=== PATIENT | female | born 1970 | race Caucasian/White ===

== ENCOUNTER 2020-09-21 17:38 | Emergency (ER) | payer OTHER ==
[~2020-09-21] VITALS: Ht 170.2 cm; Wt 81.7 kg
--- NOTE | 2020-09-21 17:48 | NUR ---
CODE 250 CALLED WHILE PT IN CAR IN ED [address]. PT ASSISTED TO WC THEN TO REGISTRATION. ACCOMPANIED BY FEMALE FRIEND, OSMANY ABELARDO ( [birth year]), CELL [phone]
--- NOTE | 2020-09-21 18:34 | NUR ---
PT STATES SHE WAS TREATED AT [place] FOR COVID TUESDAY THIS WEEK, SYMPTOMS HAVE NOT RESOLVED, SHE REMAINS WEAK, UNABLE TO STAY AWAKE. PT WITH INTERMITTANT CP, PLACED ON CARD MONITOR, CONT PULSE OX, BP. 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
--- NOTE | 2020-09-21 18:54 | NUR ---
REPORT FROM RENETTA ROWELL
[2020-09-21 19:20] LABS: BASOPHILS % (AUTO) 1 % (0-1); EOSINOPHILS % (AUTO) 0 % (1-7); LYMPHOCYTES % (AUTO) 16 % (22-44); MEAN CORPUSCULAR HEMOGLOBIN 30.5 pg (27.0-34.8); MEAN CORPUSCULAR HGB CONC 33.9 g/dL (32.4-35.8); MEAN PLATELET VOLUME 6.9 fL (7.4-10.4); MONOCYTES % (AUTO) 6 % (2-9); NEUTROPHILS % (AUTO) 78 % (42-75); PLATELET COUNT 338 x10^3/uL (130-400); RED BLOOD COUNT 4.75 x10^6/uL (3.82-5.3); RED CELL DISTRIBUTION WIDTH 13.3 % (9.6-15.2)
[2020-09-21 19:28] LABS: ALBUMIN 2.8 g/dL (3.4-5.0); ANION GAP 4 mmol/L (5-15); CHLORIDE 108 mmol/L (98-107)
[2020-09-21 19:30] LABS: D-DIMER (DIC) 0.46 ug/mlFEU (0.00-0.52); PROTIME 10.8 Seconds (9.6-11.5)
[2020-09-21 19:37] LABS: ALANINE AMINOTRANSFERASE 29 U/L (12-78); ALKALINE PHOSPHATASE 64 U/L (45-117); BILIRUBIN,TOTAL 0.4 mg/dL (0.2-1.0); C-REACTIVE PROTEIN, QUANT 0.05 mg/dL (0.02-0.49); CREATININE 0.55 mg/dL (0.55-1.02); TOTAL PROTEIN 6.2 g/dL (6.4-8.2); TROPONIN I < 0.015 ng/mL (0.000-0.045)
[2020-09-21 19:37] LABS: MICROSCOPIC NOT IND
--- NOTE | 2020-09-21 19:41 | NUR ---
Pt able to ambulate to bedside comode independently to provide UA
[2020-09-21 21:39] VITALS: BP 120/75
== END 2020-09-21 22:55 | disposition home or self-care (01) ==
LOC: ED 18:30
DX: R40.0 Somnolence (principal); R11.0 Nausea; R53.1 Weakness
CPT/HCPCS: 36415; 70450; 71045; 80053; 81003; 82140; 82728; 83605; 83615; 83880; 84145; 84443; 84484; 84703; 85025; 85049; 85379; 85384; 85610; 85730; 86140; 87040; 93005; 99285